=== PATIENT | female | born 1965 | race Caucasian/White ===

== ENCOUNTER 2022-10-14 12:24 | Emergency (ER) | payer OTHER ==
[2022-10-14 12:36] VITALS: RESP 18
[2022-10-14 15:10] VITALS: BP 136/82; PULSE 73; TEMP 97.6
[2022-10-14] MEDS ORDERED: ACETAMINOPHEN TAB 500 MG TAB PO STA (15:12)
--- NOTE | 2022-10-14 15:54 | ED ---
General Adult HPI - General Chief complaint: Recheck/Abnormal Lab/Rx Stated complaint: Weakness Time Seen by Provider: 10/14/22 15:00 Source: patient, RN notes reviewed, old records reviewed Mode of arrival: ambulatory Limitations: no limitations - History of Present Illness Initial comments: This is a 57-year-old female presents emergency pertinent stating that she is at rehab right now and her legs gave out yesterday and she bumped her head she came to the emergency department patient states they did a CAT scan it was normal. Patient states again today her legs gave out and she decided come back in and get reevaluated. Patient states she did hit her head again today but it was very minimal and mild she does not have a headache she has no numbness weakness. Patient states she was able to get up right after she fell. Patient denies any neck pain. Patient denies any numbness weakness in the extremities. Patient denies any recent fever chills or cough. Patient states her symptoms of leg weakness have been occurring for 10-15 years and this is no different than her baseline. Patient states she's been ambulating around the emergency department without problem and she would really does not want any further workup and will like to just be discharged to follow-up with her primary medical care doctor - Related Data Allergies Allergy/AdvReac Type Severity Reaction Status Date / Time isauro Allergy Rash/Hives Uncoded 10/14/22 15:11 seasonal Allergy Itching Uncoded 10/14/22 15:11 Review of Systems ROS Statement: Those systems with pertinent positive or pertinent negative responses have been documented in the HPI. ROS Other: All systems not noted in ROS Statement are negative. Past Medical History Past Medical History: Seizure Disorder Additional Past Medical History / Comment(s): closed head injury Additional Past Surgical History / Comment(s): back surgery Smoking Status: Current every day smoker Past Alcohol Use History: None Reported Past Drug Use History: Opiates General Exam - General Exam Comments Initial Comments: GENERAL: Patient is well-developed and well-nourished. Patient is nontoxic and well- hydrated and is in no acute distress. ENT: Neck is soft and supple. No significant lymphadenopathy is noted. Oropharynx is clear. Moist mucous membranes. Neck has full range of motion without eliciting any pain. EYES: The sclera were anicteric and conjunctiva were pink and moist. Extraocular movements were intact and pupils were equal round and reactive to light. Eyelids were unremarkable. PULMONARY: Unlabored respirations. Good breath sounds bilaterally. No audible rales rhonchi or wheezing was noted. CARDIOVASCULAR: There is a regular rate and rhythm without any murmurs gallops or rubs. ABDOMEN: Soft and nontender with normal bowel sounds. SKIN: Skin is clear with no lesions or rashes and otherwise unremarkable. NEUROLOGIC: Patient is alert and oriented x3. Cranial nerves II through XII are grossly intact. Motor and sensory are also intact. Normal speech, volume and content. Symmetrical smile. MUSCULOSKELETAL: Normal extremities with adequate strength and full range of motion. LYMPHATICS: No significant lymphadenopathy is noted PSYCHIATRIC: Normal psychiatric evaluation. Limitations: no limitations Course Vital Signs 10/14/22 10/14/22 12:28 15:08 Temperature 97.6 F Pulse Rate 74 73 Respiratory 18 18 Rate Blood Pressure 143/117 136/82 O2 Sat by Pulse 98 98 Oximetry Disposition Clinical Impression: Leg weakness Disposition: HOME SELF-CARE Instructions (If sedation given, give patient instructions): Weakness (ED) Is patient prescribed a controlled substance at d/c from ED?: No Referrals: None,Stated [Primary Care Provider] - 1-2 days Time of Disposition: 15:54
== END 2022-10-14 16:03 | disposition home or self-care (01) ==
LOC: EC 12:24
DX: R53.1 Weakness (principal); F17.200 Nicotine dependence, unspecified, uncomplicated; Z91.048 Other nonmedicinal substance allergy status
CPT/HCPCS: 99285